=== PATIENT | male | born 1990 | race American Indian/Alaskan Native ===

== ENCOUNTER 2016-08-02 11:55 | Emergency (ER) | payer SELFPAY ==
--- NOTE | 2016-08-02 16:43 | Emergency Department Report ---
ED Male HPI - General Chief complaint: Urogenital-Male Stated complaint: ITCHING /PRIVATE AREA Time Seen by Provider: 08/02/16 16:38 Source: patient Mode of arrival: Ambulatory Limitations: No Limitations - Related Data Home Medications Medication Instructions Recorded Confirmed Last Taken No Known Home Medications [No 08/02/16 08/02/16 Unknown Reported Home Medications] Allergies Allergy/AdvReac Type Severity Reaction Status Date / Time No Known Allergies Allergy Unverified 08/02/16 12:24 ED Review of Systems ROS: Stated complaint: ITCHING /PRIVATE AREA Other details as noted in HPI ED Past Medical Hx - Past Medical History Previous Medical History?: No - Surgical History Past Surgical History?: No - Social History Smoking Status: Current Every Day Smoker Substance Use Type: None - Medications Home Medications: Home Medications Medication Instructions Recorded Confirmed Last Taken Type No Known Home Medications [No 08/02/16 08/02/16 Unknown History Reported Home Medications] ED Physical Exam - General Limitations: No Limitations ED Course Vital Signs 08/02/16 12:22 Temperature 97 F L Pulse Rate 76 Respiratory 18 Rate Blood Pressure 110/70 O2 Sat by Pulse 100 Oximetry Critical care attestation.: If time is entered above; I have spent that time in minutes in the direct care of this critically ill patient, excluding procedure time. ED Disposition Condition: Stable
--- NOTE | 2016-08-02 16:53 | Emergency Department Report ---
Chief Complaint: Urogenital-Male Stated Complaint: ITCHING /PRIVATE AREA Time Seen by Provider: 08/02/16 16:38 - HPI History of Present Illness: 6-year-old male comes in for bumps on his groin area 1 month. Patient reports that it just itches. It started off with just one bump and then she came up. - Exam Vital Signs: Vital Signs 08/02/16 12:22 Temperature 97 F L Pulse Rate 76 Respiratory 18 Rate Blood Pressure 110/70 O2 Sat by Pulse 100 Oximetry Physical Exam: He has been screened by this provider. Patient didn't do follow-up at the health Department. MSE screening note: Focused history and physical exam performed. Due to findings the following was ordered: ED Disposition for MSE Condition: Stable
[2016-08-02 18:33] VITALS: BP 112/68
== END 2016-08-02 18:27 | disposition left against medical advice (07) ==
LOC: ED 11:55
DX: N50.9 Disorder of male genital organs, unspecified (principal); L29.9 Pruritus, unspecified; Z53.21 Procedure and treatment not carried out due to patient leaving prior to being seen by health care provider